=== PATIENT | female | born 1975 | race Caucasian/White ===

== ENCOUNTER 2016-10-28 08:29 | Emergency (ER) | payer OTHER ==
[2016-10-28] MEDS ORDERED: OPTIRAY 350 100 ML VIAL HMH IV ONE (08:30)
[2016-10-28] MEDS ORDERED: ZIPRASIDONE 20 MG INJ IM ONE (13:53)
== END 2016-10-28 16:28 | disposition home or self-care (01) ==
LOC: ER 08:29
CPT/HCPCS: 36415; 70450; 74177; 80053; 80074; 81001; 82140; 82947; 84439; 84443; 84703; 85025; 87088; 96360; 96372